=== PATIENT | female | born 1985 | race Caucasian/White ===

== ENCOUNTER 2016-10-30 15:27 | Emergency (ER) | payer OTHER, MEDICAID ==
[2016-10-30 15:40] VITALS: BP 130/76; PULSE 62; RESP 15; TEMP 98.2; O2SAT 99
--- NOTE | 2016-10-30 16:22 | UCPHY ---
H & P Time Seen by Provider: 10/30/16 16:09 Patient Type: Established HPI/ROS: CHIEF COMPLAINT: cold HISTORY OF PRESENT ILLNESS: Patient is a 31-year-old female who presents to the emergency department with multiple vague complaints. She states she developed a cold in July. This was URI type symptoms. She had sinus congestion. She then developed a urinary tract infection and the end of August or early September. She was treated with 2 antibiotics the 2nd of which was Levaquin. Her UTI symptoms had initially improved. She also felt as though her sinusitis has also improved. She denies any sinus pain. She has no cough or shortness of breath. No abdominal pain. No dysuria or hematuria. The patient is concerned that she is not peeing is often as normal. She states she is drinking the same volume of water. She feels more fatigued than normal. She is currently on her menses. Her last menses was 28 days ago. She has an IUD in place. The triage note states the patient has had dizziness. She denies specific dizziness to me but does report nausea. REVIEW OF SYSTEMS: My complete review of systems is negative except as mentioned in the HPI. Past Medical/Surgical History: Negative Past surgical history: Tonsillectomy Social history: Denies drugs or alcohol Smoking Status: Never smoked Physical Exam: Vitals noted GENERAL: Well-appearing, in no acute distress, alert. HEENT: Eyes normal to inspection, normal pharynx, no signs of dehydration. No nystagmus. NECK: No thyromegaly, no lymphadenopathy, supple. RESPIRATORY: Clear to auscultation bilaterally, no rales, rhonchi or wheezing. CVS: Regular rate and rhythm, no rubs, murmurs, or gallops. ABDOMEN: Soft, nontender, nondistended, no organomegaly. BACK: Normal to inspection, no CVA tenderness. SKIN: Normal color, no rash, warm, dry. No pallor. EXTREMITIES: No pedal edema, no calf tenderness, no Homans sign or cords, no joint swelling. NEURO/PSYCH: Higher functions: Alert and Oriented x3. Normal speech and cognition. Normal mood and affect. Cranial nerves: Normal as tested. Cerebellar: Normal as tested. Good finger to nose, good [id number], normal gait. Peripheral exam: Normal motor exam. Normal sensation. Constitutional: Initial Vital Signs Temperature (C) 36.8 C 10/30/16 15:37 Heart Rate 62 10/30/16 15:37 Respiratory Rate 15 10/30/16 15:37 Blood Pressure 130/76 H 10/30/16 15:37 O2 Sat (%) 99 10/30/16 15:37 O2 Delivery Mode Room Air Allergies/Adverse Reactions: No Known Allergies Allergy (Verified 08/21/16 22:36) Home Medications: Medication Instructions Recorded Venlafaxine HCl [Venlafaxine 75MG 75 mg PO DAILY 09/04/16 (*)] Ondansetron Odt [Zofran Odt 4 mg 4 mg PO Q4PRN PRN #7 tab 10/30/16 (*)] Medical Decision Making ED Course/Re-evaluation: I discussed possible etiologies with the patient and answered all her questions. Laboratory studies were ordered. On recheck the patient felt mildly nauseated. She was given Zofran 4 mg IV. Discussed the patient's laboratory studies. Of noted chemistry and CBC were normal. TSH was normal. Urine and negative. I discussed the results with the patient. I answered all her questions. She was given warnings prior to leaving. She will return with worsening symptoms. She will follow up with Dr. Rebolledo this week. Differential Diagnosis: My differential includes but is not limited to urinary tract infection, pyelonephritis, renal insufficiency, renal dysfunction, hypothyroidism, electrolyte abnormality, sugar abnormality, . I think sinusitis or pneumonia unlikely based on the patient's treatment with multiple courses of antibiotics. - Data Points Laboratory Results: Laboratory Results 10/30/16 16:30 10/30/16 16:30 10/30/16 16:30 WBC 5.94 10^3/uL (3.80-9.50) RBC 4.49 10^6/uL (4.18-5.33) Hgb 14.0 g/dL (12.6-16.3) Hct 41.7 % (38.0-47.0) MCV 92.9 fL (81.5-99.8) MCH 31.2 pg (27.9-34.1) MCHC 33.6 g/dL (32.4-36.7) RDW 12.2 % (11.5-15.2) Plt Count 332 10^3/uL (150-400) MPV 9.5 fL (8.7-11.7) Neut % (Auto) 52.7 % (39.3-74.2) Lymph % (Auto) 34.3 % (15.0-45.0) Kleberg % (Auto) 10.1 % (4.5-13.0) Eos % (Auto) 2.2 % (0.6-7.6) Baso % (Auto) 0.5 % (0.3-1.7) Nucleat RBC Rel Count 0.0 % (0.0-0.2) Absolute Neuts (auto) 3.13 10^3/uL (1.70-6.50) Absolute Lymphs (auto) 2.04 10^3/uL (1.00-3.00) Absolute Monos (auto) 0.60 10^3/uL (0.30-0.80) Absolute Eos (auto) 0.13 10^3/uL (0.03-0.40) Absolute Basos (auto) 0.03 10^3/uL (0.02-0.10) Absolute Nucleated RBC 0.00 10^3/uL (0-0.01) Immature Gran % 0.2 % (0.0-1.1) Immature Gran # 0.01 10^3/uL (0.00-0.10) Sodium 140 mEq/L (134-144) Potassium 3.5 mEq/L (3.5-5.2) Chloride 101 mEq/L (97-110) Carbon Dioxide 28 mEq/l (22-31) Anion Gap 11 mEq/L (8-16) BUN 14 mg/dL (7-23) Creatinine 1.0 mg/dL (0.6-1.0) Estimated GFR > 60 Glucose 95 mg/dL (70-100) Calcium 9.7 mg/dL (8.5-10.4) TSH 2.790 uIU/mL (0.465-4.680) Beta HCG, Qual NEGATIVE Urine Color YELLOW Urine Appearance CLEAR Urine pH 5.0 (5.0-7.5) Ur Specific Allen 1.025 (1.002-1.030) Urine Protein NEGATIVE (NEGATIVE) Urine Ketones NEGATIVE (NEGATIVE) Urine Blood TRACE H (NEGATIVE) Urine Nitrate NEGATIVE (NEGATIVE) Urine Bilirubin NEGATIVE (NEGATIVE) Urine Urobilinogen 0.2 EU (0.2-1.0) Ur Leukocyte Esterase NEGATIVE (NEGATIVE) Urine RBC OCCASIONAL /hpf (0-3) Urine WBC NONE SEEN /hpf (0-3) Ur Epithelial Cells 2+ H /lpf (NONE-1+) Urine Bacteria TRACE H /hpf (NONE SEEN) Urine Mucus 1+ /lpf (NONE-1+) Ur Culture Indicated? NOT INDICATED (NI) Urine Glucose NEGATIVE (NEGATIVE) Departure - Departure Disposition: Home, Routine, Self-Care Clinical Impression: Nausea Fatigue Qualifiers: Fatigue type: unspecified Qualifier Code: (R53.83) Other fatigue Condition: Good Instructions: Acute Nausea and Vomiting (ED) Additional Instructions: Return with increasing weakness, nausea, vomiting, fever or any other concerns. Your laboratory studies were unremarkable. Referrals: Jayashree Cortez MD [Primary Care Provider] - 3-4 days, if not improved Prescriptions: Ondansetron Odt [Zofran Odt 4 mg (*)] 4 mg PO Q4PRN PRN #7 tab PRN Reason: For Nausea & Vomiting - PQRS PQRS Measurement: NA
[2016-10-30 16:34] LABS: % IMMATURE GRANULYOCYTES 0.2 % (0.0-1.1); ABSOLUTE IMMATURE GRANULOCYTES 0.01 10^3/uL (0.00-0.10); ADD DIFF? NO; ADD MORPH? NO; ADD SCAN? NO; ATYPICAL LYMPHOCYTE FLAG 10 (0-99); FRAGMENT RBC FLAG 0 (0-99); HEMATOCRIT 41.7 % (38.0-47.0); LEFT SHIFT FLG 0 (0-99); LIPEMIA HEMOLYSIS FLAG 80 (0-99); MEAN CELL HEMOGLOBIN 31.2 pg (27.9-34.1); MEAN CELL HEMOGLOBIN CONCENTR. 33.6 g/dL (32.4-36.7); MEAN CELL VOLUME 92.9 fL (81.5-99.8); MEAN PLATELET VOLUME 9.5 fL (8.7-11.7); PLATELET CLUMPS FLAG 0 (0-99); PLATELET COUNT 332 10^3/uL (150-400); RED BLOOD CELL COUNT 4.49 10^6/uL (4.18-5.33); RED CELL DISTRIBUTION WIDTH 12.2 % (11.5-15.2)
[2016-10-30 16:36] LABS: COLOR YELLOW; LEUKOCYTE ESTERASE,URINE NEGATIVE (NEGATIVE); NITRITE,URINE NEGATIVE (NEGATIVE)
[2016-10-30 16:45] LABS: BACTERIA TRACE /hpf (NONE SEEN); MUCUS 1+ /lpf (NONE-1+); RBC,URINE OCCASIONAL /hpf (0-3); WBC,URINE NONE SEEN /hpf (0-3)
[2016-10-30 16:46] LABS: ANION GAP 11 mEq/L (8-16); CALCIUM 9.7 mg/dL (8.5-10.4); CARBON DIOXIDE 28 mEq/l (22-31); CHLORIDE 101 mEq/L (97-110); GLOMERULAR FILTRATION RATE > 60; GLUCOSE 95 mg/dL (70-100); POTASSIUM 3.5 mEq/L (3.5-5.2); SODIUM 140 mEq/L (134-144)
[2016-10-30] MEDS ORDERED: ONDANSETRON 4 MG/2 ML VIAL IVP ONE (17:20)
[2016-10-30] MEDS ORDERED: ONDANSETRON DISINTEGRATING 4 MG TAB PO ONE (17:58)
== END 2016-10-30 18:07 | disposition home or self-care (01) ==
LOC: CED 15:27
DX: R09.81 Nasal congestion (principal); R11.0 Nausea; R53.83 Other fatigue; R39.198 Other difficulties with micturition
CPT/HCPCS: 80048-PO; 81003-PO; 81015-PO; 84443-PO; 84703-PO; 85025-PO; 99214-PO; G0463-PO; J2405